=== PATIENT | female | born 1970 | race Caucasian/White ===

== ENCOUNTER 2017-04-17 12:57 | Emergency (ER) | payer BC, OTHER ==
[2017-04-17 13:02] VITALS: BP 145/66; PULSE 87; TEMP 98.1; BMI 34.1
[2017-04-17] MEDS ORDERED: KETOROLAC TROMETHAMINE 30 MG/1 ML VIAL IM ONE (13:41)
--- NOTE | 2017-04-17 13:50 | PDOC ---
History of Present Illness - General Chief Complaint: Back Pain Stated Complaint: BACK PAIN Time Seen by Provider: 04/17/17 13:06 History Source: Patient Exam Limitations: No Limitations - History of Present Illness Initial Comments: 04/17/17 13:51 46y F with pmhx of HL, ?CVA presents with complaint of back pain. The pt was involved in a slip and fall 2 days ago. Pt staets she slipped on ice, her legs went out from under her and she landed on her lower back and then slid down 7 steps. Pt jesse any head injury, loc, n/v, neck pain. She denies any numbness/ tingling/weakness. Pt went to OSH last week, was evaluated, got xrays that were negative, and got rx for valium, flexeril, motrin and has not seen substantial improvement. Pt note the apin is worse when she is sitting/moving. Pt denies chronic back problems. pt denies any urinary/bowel incontinence. Past History - Past Medical History Allergies/Adverse Reactions: Allergies Allergy/AdvReac Type Severity Reaction Status Date / Time No Known Allergies Allergy Verified 04/17/17 12:59 Home Medications: Ambulatory Orders Oxycodone HCl/Acetaminophen [Percocet 5-325 mg Tablet -] 1 combo PO Q6H PRN #14 tablet MDD 4 04/17/17 CVA: Yes (cva-no residual) COPD: No - Suicide/Smoking/Psychosocial Hx Smoking History: Never smoked Review of Systems - Review of Systems Able to Perform ROS?: Yes Comments:: 04/17/17 13:53 Constitutional - no reported Fever, Chills, HEENT: no reported vision changes, sore throat Respiratory: no reported cough, sob, hemoptysis Cardiac: no reported chest pain, palpitations, light headedness, leg swelling Abd/GI: no reported abd pain, nausea, vomiting, blood per rectum, melena, diarrhea : no reported dysuria, frequency, discharge Musculskelatal - +back pain, no reported joint swelling skin - no reported bruising, erythema, rash neurological: no reported headache, numbness, focal weakness, tingling, ataxia, hematologic: no reported anemia, easy bruising, easy bleeding *Physical Exam - Vital Signs Last Vital Signs Temp Pulse Resp BP Pulse Ox 98.1 F 87 19 145/66 99 04/17/17 12:59 04/17/17 12:59 04/17/17 12:59 04/17/17 12:59 04/17/17 12:59 - Physical Exam Comments: 04/17/17 13:53 GENERAL: The patient is awake, alert, and fully oriented, Nontoxic - in no acute distress. HEAD: Normocephalic, atraumatic. ENT: Normal voice, Moist mucous membranes. NECK: Normal range of motion, supple, BACK: No midline tnederness in the cervical/thoracic spin. +tenderness in the lower lumbar midline and in the L lateral paraspinal back. +ecchymosis, no fluctuance. ABDOMEN: Soft, nontender, normoactive bowel sounds. No guarding, no rebound. . No CVA tenderness EXTREMITIES: Normal range of motion, no edema. NEUROLOGICAL: No facial assymetry, lower extremity sensation intact and symmetric, hip flexion/extension 5/5, antalgic gait. PSYCH: Normal mood, normal affect. SKIN: Warm, Dry, normal turgor, Medical Decision Making - Medical Decision Making 04/17/17 13:57 46-year-old female status post mechanical slip and fall 2 days ago presenting with persistent back pain no associated numbness, Brady, weakness. Have a large ecchymotic spot in her left lower back as well as moderate tenderness in the left lower back as well as in the midline. no urinary/bowel incontinence. The patient did have a workup at outside hospital with negative x-rays will obtain a CT to rule out occult fracture. We'll give the patient Toradol and a Percocet Will reassess 04/17/17 16:30 pt feeling improved curetnly comfrtable pts CT of lumbar spine reeals acute L sided transverse fx case dw dr. conley - agree with supportive care, back brace if we havehere will have her fu with him or another ortho near her house next week pt was given a copy of her CT no neuro complaints/deficits. return precautions were dsicussed I discussed the physical exam findings, ancillary test results and final diagnoses with the patient. I answered all of the patient's questions. The patient was satisfied with the care received and felt comfortable with the discharge plan and treatment plan. The patient will call their primary care physician within 24 hours to arrange follow-up and will return to the Emergency Department with any new, persistent or worsening symptoms. *DC/Admit/Observation/Transfer Diagnosis at time of Disposition: Fall (on) (from) other stairs and steps, sequela Lumbar transverse process fracture Qualifiers: Encounter type: initial encounter Fracture type: closed Qualified Code(s): S32.009A - Unspecified fracture of unspecified lumbar vertebra, initial encounter for closed fracture - Discharge Dispostion Disposition: HOME Condition at time of disposition: Improved Admit: No - Prescriptions Prescriptions: Oxycodone HCl/Acetaminophen [Percocet 5-325 mg Tablet -] 1 combo PO Q6H PRN #14 tablet MDD 4 PRN Reason: Pain - Referrals Referrals: Christiano Weinberg [Primary Care Provider] - Hipolito Conley MD [Staff Physician] - - Patient Instructions Printed Discharge Instructions: DI for Transverse Process Fracture Additional Instructions: Return to the emergency department immediately with ANY new, persistent or worsening symptoms. You MUST call and follow up with your Dr. Conley (or another orthopedics of your choice) or further evaluation of your symptoms next week. Results were discussed with you. Please make sure your doctor reviews the results of your emergency evaluation. Try to limit any bending, heavy lifting. Take percocet as needed for the pain. Do not taken any tylenol if you are taking percocet. Do not drive if you are taking the percocet. You make continue taking your motrin 600mg four times daily as well. Print Language: [id number] - Post Discharge Activity
[2017-04-17] MEDS ORDERED: KETOROLAC TROMETHAMINE 30 MG/1 ML VIAL ONE (13:54)
== END 2017-04-17 17:32 | disposition home or self-care (01) ==
LOC: JER 12:57
PROC: 3E0233Z Introduction of Anti-inflammatory into Muscle, Percutaneous Approach (ICD-10-PCS; principal; 2017-04-17)
DX: S32.028A Other fracture of second lumbar vertebra, initial encounter for closed fracture (principal); S32.038A Other fracture of third lumbar vertebra, initial encounter for closed fracture; M51.27 Other intervertebral disc displacement, lumbosacral region; W00.1XXA Fall from stairs and steps due to ice and snow, initial encounter; Y93.89 Activity, other specified; Y92.89 Other specified places as the place of occurrence of the external cause; Y99.8 Other external cause status; E78.5 Hyperlipidemia, unspecified; Z86.73 Personal history of transient ischemic attack (TIA), and cerebral infarction without residual deficits
CPT/HCPCS: 72131-TC; 99281-25